=== PATIENT | female | born 1970 | race Caucasian/White ===

== ENCOUNTER 2021-02-24 17:16 | Emergency (ER) | payer MEDICAID ==
[~2021-02-24] VITALS: Ht 167.6 cm; Wt 69.0 kg
[2021-02-24 17:20] VITALS: BP 124/66
[2021-02-24] MEDS ORDERED: MAGNESIUM/ALUMINUM HYDROXIDE/SIMETHICONE 30ML UDC PO STA (17:35)
[2021-02-24] MEDS ORDERED: VISCOUS LIDOCAINE 2% 15 ML UDC PO STA (17:35)
[2021-02-24] MEDS ORDERED: KETOROLAC 60MG/2ML VIAL IM STA (17:35)
[2021-02-24 18:02] LABS: BASOPHILS % 0.1 % (0.0-2.0); EOSINOPHILS % 0.8 % (0.0-5.0); HEMATOCRIT. 42.9 % (36.0-48.0); HEMOGLOBIN. 14.2 g/dL (12.0-16.0); MEAN CORPUSCULAR HEMOGLOBIN 30.4 pg (28.0-32.0); MEAN CORPUSCULAR VOLUME 91.9 fL (81.0-99.0); MEAN PLATELET VOLUME 9.3 fl (7.4-10.4); NEUTROPHILS % 77.1 % (40.0-76.0); PLATELET 264 x1000/uL (130-400); RED BLOOD CELL COUNT 4.67 mill/uL (4.2-5.4); RED CELL DISTRIBUTION WIDTH 13.4 % (11.6-14.6)
[2021-02-24 18:08] LABS: CHLORIDE 104 mEq/L (98-107)
[2021-02-24] MEDS ORDERED: GABA-529 MT (20:00)
[2021-02-24 20:14] LABS: CLARITY URINE CLOUDY (CLEAR); COLOR URINE YELLOW (YELLOW); KETONES URINE 1+ (NEGATIVE); LEUKOCYTE ESTERASE URINE 2+ (NEGATIVE); NITRITE URINE NEGATIVE (NEGATIVE); OCCULT BLOOD URINE NEGATIVE (NEGATIVE); PROTEIN URINE NEGATIVE (NEGATIVE); SPECIFIC GRAVITY URINE 1.019 (1.005-1.030); UROBILINOGEN URINE 0.2 E.U./dL (0.2-1.0)
== END 2021-02-24 20:59 | disposition home or self-care (01) ==
LOC: ER 17:16
DX: K29.70 Gastritis, unspecified, without bleeding (principal); E11.65 Type 2 diabetes mellitus with hyperglycemia; E11.42 Type 2 diabetes mellitus with diabetic polyneuropathy; R51.9 Headache, unspecified; I10 Essential (primary) hypertension; K76.0 Fatty (change of) liver, not elsewhere classified; R16.0 Hepatomegaly, not elsewhere classified; Z79.84 Long term (current) use of oral hypoglycemic drugs
CPT/HCPCS: 36415; 76705; 80053; 81003; 83690; 85025; 96372; 99284; J1885